=== PATIENT | female | born 1975 | race Caucasian/White ===

== ENCOUNTER 2025-02-16 11:02 | Outpatient (AMB) | payer OTHER, BC, SELFPAY ==
--- NOTE | 2025-02-16 11:00 | GYNCLNT_ITS ---
Vital Signs 02/16/25 11:16 Height 1.65 m Height Method Stated Weight 57.663 kg Weight Measurement Method Standing Scale BMI 21.1 BP 121/81 Blood Pressure Source Automatic Cuff Blood Pressure Location Right Upper Arm Position Sitting Respiration 17 Pulse 50 L Pulse Source Monitor Temp 98.2 F Temp Source Temporal Artery Scan Pulse Oximetry (%) 97 Oxygen Delivery Method Room Air Allergies/Home Meds Allergies & Medications Allergies No Known Allergies Allergy (Verified 02/16/25 11:17) Medication Reconciliation alendronate 70 mg tablet (Fosamax) 70 mg PO QWEEK 02/16/25 [History Confirmed 02/16/25] rosuvastatin 10 mg tablet 10 mg PO QDAY 02/16/25 [History Confirmed 02/16/25] conjugated estrogens 0.625 mg/gram vaginal cream 0.625 mg vaginal .3 times a week #30 grams 02/21/25 [Rx] Intake Visit Data Collection New Patient or Established: New Patient (never been to [facility]) 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 Seen by Clinical Staff ONLY (RN/MA): No Surgical Instrument Maker Required: No Do You Feel Safe at Home: Yes Authorities Contacted: N/A PCP or OBGYN visit in last 3 months: No Hx Now: No Are you currently on any form of Control: No Pain Present Currently: No Pain Scale Used: Mchugh-Torres/Numerical Pain scale:: 0 Smoking Status Smoking Status: Never smoker 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 History Monthly: No Age at menarche: 13 Menopausal: Yes If menopausal, at what age did it occur: 48 Years of hormone replacement (if applicable): 0 Currently sexually active: Yes 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 1. Little interest or pleasure in doing things: not at all 2. Feeling down, depressed, or hopeless: not at all Total score: 0 PHQ-9 3. Trouble falling or staying asleep, or sleeping too much: Not at all 4. Feeling tired or having little energy: Not at all 5. Poor appetite or overeating: Not at all 6. Feeling bad about yourself - or that you are a failure or have let yourself or your family down: Not at all 7. Trouble concentrating on things, such as reading the newspaper or watching television: Not at all 8. Moving or speaking so slowly that other people could have noticed? - Or the opposite - being so fidgety or restless that you have been moving around a lot more than usual: not at all 9. Thoughts that you would be better off or of hurting yourself in some way: Not at all Total score: 0 If you checked off any problems, how difficult have these problems made it for you to do your work, take care of things at home, or get along with other people?: not difficult at all Source: Developed by Drs. Panchito Macedo, Meg Clemons, Hussein Neely and colleagues, with an educational umm from [employer]. Depression screen completed yes Social History Living Situation History Marital Status: Lives With: Family Housing: House Housing Other:: She has 4 children. 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 She used to see me in [place]. She did not release any of her medical records to me today. She filled out a new gynecology intake form. Her daughter Valeria is a susanne at [employer] and doing well. 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 Her twins are 10 and both playing soccer. Her daughter Nicky is a sophomore in high school and might want to work in the medical field. The patient states her cycle stopped a year or 2 ago. She states I was aware of this. Again I do not have any medical records to review. She is on Fosamax for osteopenia and osteoporosis of her neck and spine. She is reporting significant vaginal dryness and painful intercourse. She denies any hot flashes or night sweats. Patient is from her first , Deandre. The 2 older girls are from that relationship. The twins are from her new , [place]. 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 Besides vaginal dryness, she has no gynecological complaints. She does continue to exercise. Her family history significant for elevated blood pressure and osteoporosis in her mother and elevated cholesterol in her father. Dr. Gardiner is her primary care. Patient is postmenopausal for over 1 to 2 years. Gynecologic pain symptoms: Reports dyspareunia Menopause concerns/symptoms: Reports vaginal dryness Review of Systems Review of Systems Narrative Review of Systems: Patient reports pain during intercourse due to vaginal dryness. No postmenopausal bleeding. No significant hot flashes or night sweats. No urinary complaints. Genitourinary Genitourinary: Reports dyspareunia and Reports vaginal dryness Exam General Limitations: no limitations General Appearance: alert, in no apparent distress, comfortable, cooperative, healthy appearing, well developed and well groomed Neck Neck exam: Present normal inspection, full ROM and trachea midline Chest Chest inspection: Present normal inspection and symmetric chest wall rise Exp Chest Breast: bilateral: other (Breast implants bilaterally. Normal breast exam bilaterally.) Resp Respiratory exam: Present normal lung sounds bilaterally Card Cardiovascular exam: Present regular rate, normal rhythm and normal heart sounds Abdominal Abdominal exam: Present soft and normal bowel sounds External exam: Present normal external exam (Some decreased estrogen present) Speculum exam: Present normal speculum exam Bimanual exam: Present normal bimanual exam (Uterus is anteverted no adnexal pain or tenderness. Good pelvic support with no significant cystocele or rectocele or uterine descensus present) Extremities Extremities exam: Present normal inspection and full ROM Psych Psychiatric exam: Present normal affect and normal mood Skin Skin exam: Present warm, dry, intact and normal color Office Procedures OB Clinic LOC & Office Proc's Nursing/Assessment Patient Status: Initial/New Patient OB Clinic Nursing Assessment: Medication Reconciliation, Update PMH in EMR and Vital Signs OB Clinic Coordination of Care: Complex Care and Chronic Disease 1-5, Consent,records obtained, informed consent, Education Simp Pt/Fam, Lab and Imaging orders, Results/Orders obtained and Staff clarify orders Miscellaneous Interventions: Breast Exam and Pelvic/Pap Smear Set up New Patient Charge New Patient Point Assignment: 1154 New Patient Point Charge: 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 Mammogram ordered. All other screening lab work and colon screening to be done through Dr. Levin in [place]. Calcium vitamin D and increase weightbearing exercise encouraged due to her osteopenia and osteoporosis. (2) Post-menopausal atrophic vaginitis: Status: Acute Assessment and Plan: Discussed the need for vaginal estrogen replacement. Patient does not want this to be too messy. Discussed placing Premarin vaginally 3 times a week before bed and trying to actually rub this in the vaginal area and under her urethra in order to improve her atrophic vaginitis. A [facility] was [facility] to [facility] in [place]. 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
[2025-02-16 11:16] VITALS: BP 121/81; PULSE 50; RESP 17; TEMP 36.8; O2SAT 97; BMI 21.1
== END 2025-02-16 11:47 | disposition home or self-care (01) ==
PROVIDERS: Supervising Provider Obstetrics & Gynecology; Visit Provider Obstetrics & Gynecology
DX: Z01.411 Encounter for gynecological examination (general) (routine) with abnormal findings (principal); N95.2 Postmenopausal atrophic vaginitis; M81.0 Age-related osteoporosis without current pathological fracture; Z98.82 Breast implant status; Z79.899 Other long term (current) drug therapy
CPT/HCPCS: 99204; Q0091; G0463